=== PATIENT | male | born 1980 | race African-American/Black ===

== ENCOUNTER 2019-02-12 16:04 | Emergency (ER) | payer OTHER ==
[~2019-02-12] VITALS: Ht 170.2 cm; Wt 108.0 kg
[2019-02-12 16:37] LABS: ABSOLUTE NEUTROPHILS 4.5 thou/uL (1.4-8.2); BASOPHILS 1.3 % (0.0-2.0); HEMATOCRIT 41.7 % (42.0-52.0); LYMPHOCYTES 36.7 % (24.0-44.0); MCH 24.3 pg (26.0-34.0); MCHC 33.5 g/dL (28.0-37.0); MCV 72.6 fL (80.0-100.0); PLATELET COUNT 186 thou/uL (150-400); RBC 5.75 mil/uL (4.50-6.00); RDW 15.1 % (10.5-14.5)
[2019-02-12 16:41] LABS: ANION GAP 3 mmol/L (7-16); BUN 15 mg/dL (7-18); CALCIUM 9.1 mg/dL (8.5-10.1); CHLORIDE 104 mmol/L (98-107); CO2 31 mmol/L (21-32); CREATININE 1.3 mg/dL (0.7-1.3); GLUCOSE 84 mg/dL (74-106); POTASSIUM 3.8 mmol/L (3.5-5.1); SODIUM 138 mmol/L (136-145)
[2019-02-12 16:51] LABS: ALBUMIN 3.5 g/dL (3.4-5.0); SGOT 19 U/L (15-37); SGPT 30 U/L (30-65); TOTAL BILIRUBIN 0.5 mg/dL (<0.1-1.0); TROPONIN-I <0.06 ng/mL (<0.06)
[2019-02-12] MEDS ORDERED: IBUPROFEN 800800 M1 PO (17:13)
[2019-02-12 17:48] VITALS: BP 173/116
--- NOTE | 2019-02-16 12:58 | EKG ---
[place] [address] [facility] [place] [address] ELECTROCARDIOGRAM REPORT Name: YAEL ASKEW Room #: [facility] Makenna#: [id number] Admission: 02/12/19 Attend Phys: Discharge: 02/12/19 Date of : 84 Report #: [id number] THIS REPORT FOR: //name// [facility] ED Test Date: 2019-02-12 Test Time: 16:10:19 Pat Name: YAEL ASKEW Department: Room: Gender: Fire Apparatus Engineer: SAMANTHA : 1980 Requested By: Cecelia Larios Order Number: [id number] MD: Andre Montiel Measurements Intervals [place] Rate: 83 P: 33 DC: 171 QRS: -9 QRSD: 84 T: 12 QT: 351 QTc: 413 Interpretive Statements Sinus rhythm Probable left atrial enlargement ST elev, probable normal early repol pattern No previous ECG available for comparison Electronically Signed On 02-16-2019 12:58:15 [employer]OTOGR[employer]HER by Andre Montiel [email or web address] <ELECTRONICALLY SIGNED> By: Andre Montiel MD 02/16/19 1258 0 09 Andre Montiel MD /GLENN
== END 2019-02-12 17:53 | disposition home or self-care (01) ==
LOC: ER 16:04
PROVIDERS: Nurse Practitioner
DX: R07.89 Other chest pain (principal); R42 Dizziness and giddiness; I10 Essential (primary) hypertension